=== PATIENT | female | born 1940 | race Caucasian/White ===

== ENCOUNTER → 2023-07-30 09:38 | Outpatient (REF) | payer BC, SELFPAY | LOC: MRI 3T 09:38 | PROVIDERS: ATTENDING PHYSICIAN Specialist; FAMILY PHYSICIAN Family Medicine | DX: G93.41 Metabolic encephalopathy (principal) | CPT/HCPCS: 70551 ==

== ENCOUNTER → 2023-07-31 07:36 | Outpatient (REF) | payer BC, SELFPAY | LOC: EMG 07:36 | PROVIDERS: ATTENDING PHYSICIAN Family Medicine | DX: R20.0 Anesthesia of skin (principal) | CPT/HCPCS: 95886; 95910 ==

== ENCOUNTER → 2023-08-21 09:52 | Outpatient (REF) | payer BC, SELFPAY | LOC: MRI 3T 09:52 | PROVIDERS: ATTENDING PHYSICIAN Specialist; FAMILY PHYSICIAN Family Medicine | DX: M48.02 Spinal stenosis, cervical region (principal) | CPT/HCPCS: 72141 ==

== ENCOUNTER 2023-08-27 17:12 | Emergency (ER) | payer BC, MEDICARE, SELFPAY ==
[2023-08-27 17:14] VITALS: BP 136/68
--- NOTE | 2023-08-27 19:25 | ED.GENMED ---
History of Present Illness
General
Chief Complaint: Headache
Time Seen by Provider: 08/27/23 18:32
History of Present Illness
History of Present Illness:
82-year-old female presents the emergency department for evaluation of severe pain to the base of her skull bilaterally. Is been present for the past 2 days. Pain does not worsen with movement of the head or neck and does not radiate to the upper
extremities. Denies any dizziness, vision changes, nausea, or vomiting. No chest pain or shortness of breath. Pain was gradual in nature but is worsened, has not benefited from Tylenol
Past History
Past History
ED Past Medical History: Other (TIA); Negative Asthma, HTN, Hypercholesterolemia or NIDDM
ED Past Surgical History: Other (cataract surgery)
Social History
Tobacco: Former smoker
Alcohol: Occasional
Drug: None
Personal:
Living: with family
Family History
Family History: Unable to obtain
Review of Systems
Review of Systems
Allergies reviewed?: Yes
All Other Systems: ROS reviewed and negative except as documented in HPI and ROS
Phy Exam
Physical Exam
Physical Exam:
GEN: Well appearing, NAD, WDWN
HEENT: Oral mucosa moist, no scleral icterus, no nasal congestion. Tenderness elicited to the occipital skull at the lesser occipital nerve bilaterally, normal neck range of motion with no midline cervical spine tenderness
Cardiac: Regular rate
Lung: No respiratory distress, no tachypnea
MSK: No gross deformity or injuries
Skin: Good color, no pallor or jaundice, no rashes
Neuro: AO x3; CN II-XII grossly intact. BUE strength 5/5 in all ubrch, sensation intact and symmetric. BLE strength 5/5 in all burch, sensation intact and symmetric
Psych: Calm, cooperative
Course
Vital Signs
Initial and Last Documented VS:
Initial Vital Signs
Temp Pulse Resp BP Pulse Ox
98 F 82 16 136/68 95
08/27/23 17:14 07/16/24 17:14 08/27/23 17:14 08/27/23 17:14 08/27/23 17:14
Last Documented Vital Signs
Temp Pulse Resp BP Pulse Ox
98 F 82 16 136/68 95
08/27/23 17:14 08/27/23 17:14 08/27/23 17:14 08/27/23 17:14 08/27/23 17:14
MDM/Problems Addressed
MDM/Problems Addressed:
Nerve blocks performed with 5 cc of 1% lidocaine injected into the lesser occipital nerve spaces bilaterally with resolution of symptoms. She has no focal neurodeficits to suggest intracranial etiology. Patient does have known severe cervical
spine disease based on recent MRI and this likely is the causative factor for tension headache
*Critical Care Note
Total Time (30-74mins, 75-104mins- exclusive of procedures): Not Applicable
ED Attending Note
-
Portions of this chart may have been created with voice recognition software.� Occasional wrong word or��sound alike� substitutions may have occurred due to the inherent limitations of voice recognition software.
Discharge Plan
Departure
Patient Disposition: Home (Routine Discharge)
Date of Disposition: 08/27/23
Time of Disposition: 19:25
Patient with high blood pressure during this ER visit?: No
Discharge Problem:
Acute tension headache
Instructions: Tension Headache (DC)
Prescriptions:
New
diazepam 2 mg tablet
2 mg PO HS PRN (Reason: muscle spasm) Qty: 6 0RF
No Action
propranolol 40 MG tablet
80 mg PO Daily
sertraline 50 MG tablet
50 mg PO DAILY
topiramate [Topamax] 50 MG tablet
100 mg PO BID
vitamin E (dl, acetate) 400 UNITS capsule
400 units PO DAILY
Vitamin Y52-Ajcpuvhna Factor
100 mcg PO DAILY
Vitamin B6
160 mg PO BID
atorvastatin 20 MG tablet
20 mg PO DAILY
aspirin 81 MG tablet,delayed release (DR/EC)
1 tab PO BID
multivitamin 1 EACH tablet
1 tab PO DAILY
calcium carbonate [Oyster Shell Calcium 500] 500 MG tablet
500 mg PO BID
amoxicillin-pot clavulanate 1 TABLET tablet
1 tab PO DIRECTED
carbamazepine 200 MG tablet
200 mg PO DAILY Qty: 14 0RF
Referrals:
Brady Myers DO [Family Provider] -
Interventions
Interventions:
*Risk Screen - Suicide Last Done: 08/27/23 17:14
*General Assessment Last Done: 08/27/23 17:14
*Neglect/Abuse Screening Last Done: 08/27/23 17:14
ED- Fall Risk Assessment Last Done: 08/27/23 19:39
*ED COVID-19 Vaccine History Last Done: 08/27/23 17:14
*Nursing Disposition Last Done: 08/27/23 19:39
ED- Neurological Assessment Last Done: 08/27/23 18:27
Discharge Date and Time
Discharge Date/Time: 08/27/23 19:39
Print Language: GHANAIAN
== END 2023-08-27 19:39 | disposition home or self-care (01) ==
LOC: EMR 17:12
PROVIDERS: EMERGENCY PHYSICIAN Emergency Medicine; FAMILY PHYSICIAN Family Medicine
DX: G44.209 Tension-type headache, unspecified, not intractable (principal); Z86.73 Personal history of transient ischemic attack (TIA), and cerebral infarction without residual deficits; Z87.891 Personal history of nicotine dependence
CPT/HCPCS: 99282

== ENCOUNTER 2023-12-29 15:45 | Emergency (ER) | payer BC, MEDICARE, SELFPAY ==
[2023-12-29 15:48] VITALS: BP 124/72
--- NOTE | 2023-12-29 16:52 | ED.MUSCINJ ---
HPI-Injury
General
Chief Complaint: Fall
Source: patient
Exam Limitations: none
Time Seen by Provider: 12/29/23 16:36
Nursing documentation reviewed up to this point in time: agreed with
History of Present Illness-Injury
Is this injury a work related problem?: No
Is pt an associate of [facility]/[place]?: No
Initial Injury comments:
Patient states she was walking in her kitchen, felt lightheaded and fell. Denies hitting her head. Able to get self up. Complains of increasing neck pain. Has had dizziness in past. Brought to ED by daughter for eval.
Past History
Past History
ED Past Medical History: HTN, Hypercholesterolemia and Other (TIA)
ED Past Surgical History: Other (cataract surgery)
Social History
Tobacco: Former smoker
Alcohol: Occasional
Drug: None
Personal:
Living: with family
Family History
Family History: Unable to obtain
Review of Systems
Review of Systems
Allergies reviewed?: Yes
All Other Systems: ROS reviewed and negative except as documented in HPI and ROS
Constitutional: Reports no symptoms
EENT: Reports no symptoms
Respiratory: Reports no symptoms
Cardiac: Reports no symptoms
ABD/GI: Reports no symptoms
: Reports no symptoms
Musculoskeletal: Reports neck pain
Skin: Reports no symptoms
Neurological: Reports dizzy
Psychiatric: Reports no symptoms
Musculoskeletal Injury Exam
Musculoskeletal Injury Exam
Posterior Neck:
Pain with Movement?: Moderate
Tender to palpation?: Moderate
Soft tissue swelling?: None
External deformity and angulation?: None
Joint effusion?: None
Contusion?: None
Hematoma-local bleeding into tissue?: None
Strain- Sprain- Tear (Connective tissue injury)?: Moderate
Crepitus with movement?: No
Joint instability?: No
Malalignment/deformity?: No
Range of motion: Limited
Distal skin color and temperature: normal-warm & good color
Capillary Refill: normal
Normal distal neurovascular exam?: Yes
Phy Exam
General Physical Exam
General Presentation: well appearing and no apparent distress
General age: appears stated age
General Skin: warm and dry
General Habitus: normal
General Mental: alert
General Hydration: appears well hydrated
Cardiovascular Exam
Cardiovascular Exam: regular rate/rhythm and no edema
Pulmonary Exam
Pulmonary Exam: lungs clear, no respiratory distress and chest non tender
Neurological Exam
Neurological Exam: alert, oriented x3, CN II-XII intact, no motor deficits, no sensory deficits and speech normal
Musculoskeletal Exam
Musculoskeletal Exam: full ROM and neuro vasc intact
Skin Exam
Skin Exam: normal color, warm/dry and no rash
Psychiatric Exam
Psychiatric Exam: normal mood/affect
Injury Course
Orders/Labs/Results
Orders:
Orders
12/29/23 15:56
Electrocardiogram (*1) Urgent
Reason for Study: Other
Other Reason for Exam: fall
EKG- Treatment ONCE
12/29/23 16:51
CT Head W/o Iv Contrast Urgent
Comment:
Reason For Exam: fall, pain
Cervical Spine wo Contrast CT [CT Cervical Spine W/o Iv Contr] Urgent
Comment:
Reason For Exam: fall, pain
12/29/23 17:02
Complete Blood Count/With Diff Urgent
Comprehensive Metabolic Panel Urgent
12/29/23 18:35
Urinalysis Reflex To Culture Urgent
Date Specimen was Collected: 12/29/23
Time Specimen was Collected: 18:27
Abnormal Lab Results
12/29/23
17:02
RBC 4.09 L 10^6/uL
(4.20-5.40)
MCHC 32.3 L g/dL
(33.0-37.0)
Absolute Monos (auto) 0.8 H 10^3/uL
(0.1-0.6)
Monocytes % 11.4 H %
(1.7-9.3)
Carbon Dioxide 32 H mmol/L
(22-30)
BUN 33 H mg/dl
(7-17)
Calcium 10.3 H mg/dl
(8.4-10.2)
12/29/23 17:02
12/29/23 17:02
*Radiology
Radiology exam reviewed: radiology read reviewed
*Pulse Oximetry
Patient hypoxic: no
*Critical Care Note
Total Time (30-74mins, 75-104mins- exclusive of procedures): Not Applicable
ED Attending Note
-
Portions of this chart may have been created with voice recognition software.� Occasional wrong word or��sound alike� substitutions may have occurred due to the inherent limitations of voice recognition software.
Discharge Plan
Departure
Patient Disposition: Home (Routine Discharge)
Date of Disposition: 12/29/23
Time of Disposition: 19:01
Patient with high blood pressure during this ER visit?: No
Condition: Good
Covid-19: Not Applicable
Discharge Problem:
Fall
Instructions: Preventing falls in adults, Dizziness
Prescriptions:
No Action
propranolol 40 MG tablet
80 mg PO Daily
sertraline 50 MG tablet
50 mg PO DAILY
topiramate [Topamax] 50 MG tablet
100 mg PO BID
vitamin E (dl, acetate) 400 UNITS capsule
400 units PO DAILY
Vitamin N28-Fheiosgaq Factor
100 mcg PO DAILY
Vitamin B6
160 mg PO BID
atorvastatin 20 MG tablet
20 mg PO DAILY
aspirin 81 MG tablet,delayed release (DR/EC)
1 tab PO BID
multivitamin 1 EACH tablet
1 tab PO DAILY
calcium carbonate [Oyster Shell Calcium 500] 500 MG tablet
500 mg PO BID
amoxicillin-pot clavulanate 1 TABLET tablet
1 tab PO DIRECTED
carbamazepine 200 MG tablet
200 mg PO DAILY Qty: 14 0RF
diazepam 2 mg tablet
2 mg PO HS PRN (Reason: muscle spasm) Qty: 6 0RF
Referrals:
Brady Myers, [Family Provider] - Follow up in 2-3 days
Interventions
Interventions:
*Risk Screen - Suicide Last Done: 12/29/23 15:48
*General Assessment Last Done: 12/29/23 16:41
*Neglect/Abuse Screening Last Done: 12/29/23 15:48
ED- Fall Risk Assessment Last Done: 12/29/23 19:24
*Nursing Disposition Last Done: 12/29/23 19:24
ED-Musculoskeletal Assessment Last Done: 12/29/23 16:41
ED- Neurological Assessment Last Done: 12/29/23 16:41
ED-Skin Assessment Last Done: 12/29/23 16:41
Discharge Date and Time
Discharge Date/Time: 12/29/23 19:25
Print Language: K[place]IL[place]
[2023-12-29 17:09] LABS: % Basophils 0.7 % (0-2); % Eosinophils 2.2 % (0-6); % Immature Granulocytes 0.3 % (0-0.5); % Lymphocytes 24.3 % (20.5-51.1); % Monocytes 11.4 % (1.7-9.3); % Neutrophils 61.1 % (42.2-75.2); Absolute Basophils 0.1 10^3/uL (0-0.2); Absolute Eosinophils 0.2 10^3/uL (0-0.7); Absolute Lymphocytes 1.8 10^3/uL (1.2-3.4); Absolute Monocytes 0.8 10^3/uL (0.1-0.6); Absolute Neutrophils 4.5 10^3/uL (1.4-6.5); Hematocrit 37.8 % (37.0-47.0); Hemoglobin 12.2 g/dL (12.0-16.0); Mean Corp Hgb Conc. 32.3 g/dL (33.0-37.0); Mean Corpuscular Hgb 29.8 pg (27.0-31.0); Mean Corpuscular Volume 92.4 fL (81.0-99.0); Mean Platelet Volume 10.1 fL (7.4-10.4); Nucleated Red Blood Cells % 0 %; Platelet Count 192 10^3/uL (130-400); Red Blood Cell Count 4.09 10^6/uL (4.20-5.40); Red Cell Dist. Width 13.9 % (11.5-14.5); White Blood Cell Count 7.4 10^3/uL (4.8-10.8)
[2023-12-29 17:21] LABS: ALT (SGPT) 23 U/L (0-35); AST (SGOT) 33 U/L (14-36); Albumin 3.7 g/dl (3.5-5.0); Alkaline Phosphatase 52 U/L (38-126); Blood Urea Nitrogen 33 mg/dl (7-17); Calcium 10.3 mg/dl (8.4-10.2); Carbon Dioxide 32 mmol/L (22-30); Chloride 106 mmol/L (98-107); Glucose 92 mg/dl (70-99); Potassium 4.1 mmol/L (3.5-5.1); Sodium 144 mmol/L (135-145); Total Bilirubin 0.3 mg/dl (0.2-1.3); Total Protein 6.4 g/dl (6.3-8.2); eGFR > 60.00
[2023-12-29 18:12] VITALS: BP 111/69
[2023-12-29 18:42] LABS: Urine Albumin Negative (Neg - Trace); Urine Bilirubin Negative (Negative); Urine Character Clear (Clear); Urine Color Yellow; Urine Glucose Negative (Negative); Urine Ketone Negative (Negative); Urine Leukocyte Negative (Negative); Urine Nitrite Negative (Negative); Urine Occult Blood Negative (Negative); Urine Specific Gravity 1.015 (<1.030); Urine Urobilinogen Negative (Neg - 1+)
== END 2023-12-29 19:25 | disposition home or self-care (01) ==
LOC: EMR 15:45
PROVIDERS: Nurse Practitioner; EMERGENCY PHYSICIAN Emergency Medicine; FAMILY PHYSICIAN Family Medicine
DX: R42 Dizziness and giddiness (principal); M54.2 Cervicalgia; W19.XXXA Unspecified fall, initial encounter; Z87.891 Personal history of nicotine dependence
CPT/HCPCS: 99285; 70450; 72125; 80053; 81003; 85025; 93005

== ENCOUNTER 2024-01-12 08:43 | Emergency (ER) | payer BC, MEDICARE, SELFPAY ==
[2024-01-12 08:44] VITALS: BP 117/53
--- NOTE | 2024-01-12 09:36 | ED.GENMED ---
History of Present Illness
General
Chief Complaint: Headache
Source: patient
Exam Limitations: none
Time Seen by Provider: 01/12/24 09:35
Nursing documentation reviewed up to this point in time: agreed with
History of Present Illness
History of Present Illness:
83-year-old female with history of migraines, TIA, HLD, anxiety/depression presents with frontal headache that started and woke her sometime in the middle of the night.
Was staying with relatives for , woke today to go to [employer] and had 10/10 headache and became hoarse, called her daughter to bring her to ER.
Denies change in vision, weakness, dizziness, n/v/d/c. Denies UTI symptoms. Took Tylenol 1000 mg 8:30 am. that didn't help. States h/a remains 10/10, across forehead, both temples
States she has had similar headaches in the past.
She does have hx of posterior headaches with chronic neck pain and has appt with pain management Dr. Garcia in 10 days.
Past History
Past History
ED Past Medical History: HTN, Hypercholesterolemia, Other (TIA) and Other (chronic neck pain, cephaligia, appt with Dr. Garcia 01/22/24)
ED Past Surgical History: Other (cataract surgery)
Social History
Tobacco: Former smoker
Alcohol: Occasional
Drug: None
Personal:
Living: with family
Family History
Family History: Unable to obtain
Review of Systems
Review of Systems
Allergies reviewed?: Yes
All Other Systems: ROS reviewed and negative except as documented in HPI and ROS
Constitutional: Denies fever or chills
EENT: Reports other (voice hoarse since this a.m.)
Respiratory: Denies cough or trouble breathing
Cardiac: Denies chest pain
ABD/GI: Denies abdominal pain, nausea, vomiting, diarrhea or anorexia
: Denies dysuria, frequency, difficulty voiding or urgency
Musculoskeletal: Reports no symptoms
Skin: Reports no symptoms
Neurological: Reports headache; Denies dizzy, weakness or numbness
Phy Exam
Physical Exam
Physical Exam:
GENERAL: No acute distress. A&Ox3.
CONSTITUTIONAL: Afebrile.
Head: No temporal or scalp tenderness to percussion
EYES: PERRL, conjunctivae normal
Neck: Supple
ENMT: moist mucus membranes, Pharynx nl, TMs normal. Nasal stuffiness/voice noted, mild hoarseness. No tenderness to palpation of frontal or maxillary sinuses
RESPIRATORY: Regular respirations, nonlabored, lungs clear.
CARDIOVASCULAR: Regular rate and rhythm, no murmurs, no rubs.
GI: Soft, nontender, normal BS
MUSCULOSKELETAL: No spinal bony tenderness. Moves with ease. Well perfused. No edema
SKIN: Warm, dry, pink
PSYCH: Normal mood and affect. Well kept, interactive and appropriate
NEUROLOGIC: Awake, alert and oriented. No focal neurological deficits
Course
Orders/Labs/Results
Orders:
Orders
01/12/24 09:54
Ibuprofen [Motrin] 600 mg PO NOW STA
01/12/24 09:58
COVID-19 Antigen Urgent
Source: Nasal Swab
01/12/24 11:37
Dexamethasone Pf [Decadron] 10 mg PO NOW STA
Vital Signs
Initial and Last Documented VS:
Initial Vital Signs
Temp Pulse Resp BP Pulse Ox
98.7 F 71 16 117/53 97
01/12/24 08:44 01/12/24 08:44 01/12/24 08:44 01/12/24 08:44 01/12/24 08:44
Last Documented Vital Signs
Temp Pulse Resp BP Pulse Ox
97.9 F 68 16 104/55 99
01/12/24 11:12 01/12/24 11:58 01/12/24 11:58 01/12/24 11:58 01/12/24 11:58
MDM/Problems Addressed
Differential Diagnosis Includes:
sinus headache, sinusitis, viral URI, Covid
MDM/Problems Addressed:
83-year-old female with history of migraines, TIA, HLD, anxiety/depression presents with frontal headache that started and woke her sometime in the middle of the night.
Was staying with relatives for Thanksgiving, woke today to go to [employer] and had 10/10 headache and became hoarse, called her daughter to bring her to ER.
Denies change in vision, weakness, dizziness, n/v/d/c. Denies UTI symptoms. Took Tylenol 1000 mg 8:30 am. that didn't help. States h/a remains 10/10, across forehead, both temples
States she has had similar headaches in the past.
She does have hx of posterior headaches with chronic neck pain and has appt with pain management Dr. Garcia in [address] cervical spine and head on 12/29/23:
IMPRESSION:
1. No acute intracranial abnormality noted.
2. No acute fracture or subluxation of the cervical spine. Multilevel degenerative changes of the cervical spine.
No neuro deficits, no indication to repeat.
Ibuprofen didn't help per daughter at bedside. Pt is sleeping, snoring.
Pt is totally non toxic appearing, has stuffy voice, mild hoarseness, recently visited family for holiday, Covid neg. Most likely viral URI
Pt OOB and ambulating well.
Daughter comfortable taking her home (she lives with her) Return instructions reviewed.
*Critical Care Note
Total Time (30-74mins, 75-104mins- exclusive of procedures): Not Applicable
ED Attending Note
-
Portions of this chart may have been created with voice recognition software.� Occasional wrong word or��sound alike� substitutions may have occurred due to the inherent limitations of voice recognition software.
Discharge Plan
Departure
Patient Disposition: Home (Routine Discharge)
Date of Disposition: 01/12/24
Time of Disposition: 11:36
Patient with high blood pressure during this ER visit?: No
Condition: Good
Discharge Problem:
Acute sinusitis, Upper respiratory infection, viral
Instructions: Sinusitis in adults, Sinus Headache (DC), Upper respiratory infection in adults - Discharge instructions
Prescriptions:
New
fluticasone propionate [Flonase Allergy Relief] 50 mcg/actuation spray,suspension
1 spray intranasal BID Qty: 16 0RF
No Action
propranolol 40 MG tablet
80 mg PO Daily
sertraline 50 MG tablet
50 mg PO DAILY
topiramate [Topamax] 50 MG tablet
100 mg PO BID
vitamin E (dl, acetate) 400 UNITS capsule
400 units PO DAILY
Vitamin E95-Sdrqtuqep Factor
100 mcg PO DAILY
Vitamin B6
160 mg PO BID
atorvastatin 20 MG tablet
20 mg PO DAILY
aspirin 81 MG tablet,delayed release (DR/EC)
1 tab PO BID
multivitamin 1 EACH tablet
1 tab PO DAILY
calcium carbonate [Oyster Shell Calcium 500] 500 MG tablet
500 mg PO BID
amoxicillin-pot clavulanate 1 TABLET tablet
1 tab PO DIRECTED
carbamazepine 200 MG tablet
200 mg PO DAILY Qty: 14 0RF
diazepam 2 mg tablet
2 mg PO HS PRN (Reason: muscle spasm) Qty: 6 0RF
Referrals:
UNKNOWN - PT NOT,INTERVIEWE [Unknown Provider] -
Activity Restrictions/Additional Instructions:
As we discussed, with your sinus congestion, you most likely have a sinus headache and a viral upper respiratory infection
You were given Decadron 10 mg (a steroid) for inflammation. This should last for 2-3 days. It may take 12-24 hours to kick in .
Continue Tylenol 1000 mg 3 times a day (every 6-8 hours) for the next 3 days, then as needed.
Take Claritin or Zyrtec daily for the next week to see if it helps.
I sent a prescription for Flonase to your pharmacy, use it twice a day for next week.
See your doctor on or Saturday if not a lot better by then.
Return here immediately for pain getting worse despite Tylenol and steroid, confusion, weakness, or feeling worse in any way.
Interventions
Interventions:
*Risk Screen - Suicide Last Done: 01/12/24 08:49
*General Assessment Last Done: 01/12/24 09:49
*Neglect/Abuse Screening Last Done: 01/12/24 09:49
*ED COVID-19 Vaccine History Last Done: 01/12/24 09:49
*Nursing Disposition Last Done: 01/12/24 12:16
ED- Neurological Assessment Last Done: 01/12/24 09:49
Discharge Date and Time
Discharge Date/Time: 01/12/24 12:35
Print Language: [place] K[place]
[2024-01-12 09:49] VITALS: BMI 18.4
[2024-01-12] MEDS: MOTRIN 600 MG PO (10:03)
[2024-01-12 10:17] LABS: COVID-19 Antigen Negative (Negative)
[2024-01-12 11:12] VITALS: BP 100/53
[2024-01-12] MEDS: DECADRON 10 MG PO (11:57)
[2024-01-12 11:58] VITALS: BP 104/55
== END 2024-01-12 12:35 | disposition home or self-care (01) ==
LOC: EMR 08:43
PROVIDERS: Registered Nurse; EMERGENCY PHYSICIAN Student in an Organized Health Care Education/Training Program; FAMILY PHYSICIAN Family Medicine
DX: J01.90 Acute sinusitis, unspecified (principal); J06.9 Acute upper respiratory infection, unspecified; E78.00 Pure hypercholesterolemia, unspecified; F41.9 Anxiety disorder, unspecified; I10 Essential (primary) hypertension; Z86.73 Personal history of transient ischemic attack (TIA), and cerebral infarction without residual deficits; Z87.891 Personal history of nicotine dependence
CPT/HCPCS: 99282; 87811

== ENCOUNTER → 2024-05-06 12:56 | Outpatient (REF) | payer BC, SELFPAY | LOC: WDC 12:56 | PROVIDERS: ATTENDING PHYSICIAN Family Medicine | DX: Z78.0 Asymptomatic menopausal state (principal); Z12.31 Encounter for screening mammogram for malignant neoplasm of breast; E04.1 Nontoxic single thyroid nodule | CPT/HCPCS: 76536; 77063; 77067; 77080 ==